=== PATIENT | male | born 1945 | race Caucasian/White ===

== ENCOUNTER 2017-07-22 12:39 | Outpatient (CLI) | payer MEDICARE | END 2017-07-22 12:40 | disposition home or self-care (01) | LOC: BICRAD 12:39 | PROVIDERS: ATTEND Internal Medicine Medical Oncology | DX: C90.00 Multiple myeloma not having achieved remission (principal) | CPT/HCPCS: 77075 ==

== ENCOUNTER 2018-02-24 09:35 | Observation (INO) | payer MEDICARE ==
[2018-02-24 10:20] LABS: #Eosinphils 0.2 thou/uL (0.0-0.7); #Lymphocytes 1.5 thou/uL (1.20-3.40); #Neutrophils 6.7 thou/uL (1.40-6.50); %Basophils 0.4 % (0.0-1.0); %Lymphocytes 15.4 % (21.0-51.0); %Monocytes 11.1 % (0.0-10.0); Hemoglobin 13.5 g/dL (14.0-18.0); Mean Corpuscular HGB CONC 32.9 g/dL (32.0-36.0); Mean Corpuscular Hemoglobin 30.7 pg (27.0-31.0); Mean Corpuscular Volume 93.3 fL (78.0-98.0); Mean Platelet Volume 7.7 fL (7.4-10.4); Platelet Count 271 thou/uL (130-400); RBC Distribution Width 13.2 % (11.5-14.5); White Blood Cell (WBC) Count 9.4 thou/uL (4.8-10.8)
[2018-02-24 10:26] LABS: INR-International Normal Ratio 2.9; PTT 42.4 SEC (22.9-36.1); Prothrombin Time 30.5 SEC (12.0-14.7)
[2018-02-24 10:40] LABS: ALT (SGPT) 16 U/L (8-55); AST (SGOT) 14 U/L (5-34); Albumin 3.7 g/dL (3.4-4.8); Alkaline Phosphatase 98 U/L (40-150); Anion Gap 18 mmol/L (10-20); BUN (Urea Nitrogen) 15 mg/dL (8.4-25.7); Bilirubin, Total 0.6 mg/dL (0.2-1.2); Calc. Creatinine Clearance 0 mL/min (70-130); Calcium 9.1 mg/dL (7.8-10.44); Carbon Dioxide 18 mmol/L (23-31); Chloride 106 mmol/L (98-107); Estimated GFR-MDRD 60; Globulin 4.1 g/dL (2.4-3.5); Glucose 119 mg/dL (83-110); Lipase 12 U/L (8-78); Potassium 4.1 mmol/L (3.5-5.1); Protein, Total 7.8 g/dL (5.8-8.1); Sodium 138 mmol/L (136-145)
--- NOTE | 2018-02-24 12:05 | CT ---
CT PULMONARY ANGIOGRAM WITH IV CONTRAST AND 3D POSTPROCESSING: Date: 02/24/18 HISTORY: 72-year-old male with dyspnea. Right lower extremity deep venous thrombosis diagnosed recently on . Multiple myeloma. FINDINGS: There is good contrast opacification of the pulmonary arterial vasculature with filling defects bilat erally consistent with pulmonary embolism. There is straightening of the intraventricular septum sugg estive of right ventricular strain. The thoracic aorta is well opacified without aneurysm or dissection. No pleural or pericardial effusi ons are seen. No pneumothoraces are identified. There are dependent changes in the lung bases. Multip le old rib fractures are present. There are lytic lesions in the skeleton consistent with multiple my eloma. A small hiatal hernia is noted. IMPRESSION: Bilateral pulmonary embolism with right ventricular strain. Discussed over the telephone with ER physician, Dr. Giuseppe Hager, at 1131 hours. CODE CR. POS: OFF
[2018-02-24] MEDS ORDERED: Enoxaparin Sodium 100 MG/ML SYRINGE ONE (12:12)
[2018-02-24] MEDS ORDERED: Acetaminophen 325 MG TAB PO PRN (12:54)
[2018-02-24] MEDS ORDERED: HYDROcodone/Acetaminophen 5/325 mg Tablet PO PRN (12:54)
[2018-02-24] MEDS ORDERED: Ondansetron PF 4 MG/2 ML Vial IVP PRN (12:54)
[2018-02-24] MEDS ORDERED: Zolpidem Tartrate 5 MG TAB PO PRN (12:54)
--- NOTE | 2018-02-24 13:03 | PDOC.EVN ---
Event Note - Event Note Event Note: DC SUMMARY [id number]
[2018-02-24 14:24] VITALS: BMI 30.2
--- NOTE | 2018-02-24 14:52 | HP ---
HISTORY OF PRESENT ILLNESS: This is a 72-year-old male, who presents to the hospital complaining of shortness of breath. He states that he is a multiple myeloma patient in remission. He was found to have a DVT approximately 6 days ago and was started on Xarelto 15 mg twice a day about 15 days ago. The patient states that he has been compliant with his medication. However, this morning, he started to have significant shortness of breath and worsening of his symptoms. He came to the ER, had an angiography performed, and was found to have bilateral PEs on CT angio. The patient otherwise states that he has no other medical history. He gets his medical care when he is here in [place]. 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 The patient currently is resting comfortably in bed and has no other complaints or issues. Denies any nausea, vomiting, diarrhea, constipation, chest pain, fevers, or chills. Does admit to some mild shortness of breath. ALLERGIES: NO KNOWN DRUG ALLERGIES. PAST MEDICAL HISTORY: Multiple myeloma in remission. MEDICATIONS: See MAR. SOCIAL HISTORY: Nondrinker and nonsmoker. FAMILY HISTORY: Unremarkable. REVIEW OF SYSTEMS: GENERAL: All systems reviewed. Pertinent positives in HPI, otherwise negative. VITAL SIGNS: Blood pressure 135/85, respiratory rate of 18, heart rate in the low 80s, temperature of 98. PHYSICAL EXAMINATION: GENERAL: The patient is lying in bed, in no acute discomfort. HEENT: Pupils equal, round, and reactive to light and accommodation. Extraocular muscles intact. Normocephalic, atraumatic. Oral cavity moist and pink. NECK: Supple, mobile, nontender. Thyroid appreciated. LUNGS: Clear to auscultation bilaterally. No respiratory distress. No increase in AP diameter. CARDIOVASCULAR: Regular rate and rhythm. S1 and S2. No murmurs, rubs, or gallops appreciated. No carotid bruit appreciated. ABDOMEN: Rotund. Positive bowel sounds. Soft, nontender. EXTREMITIES: Trace edema in bilateral lower extremities. 2+ peripheral pulses noted. NEUROLOGIC: Cranial nerves 2 through 12 intact. Alert and oriented x3. LABORATORY DATA: CBC within normal limits. BMP within normal limits. CTA of the chest was performed, positive for bilateral pulmonary embolism with biventricular strain. ASSESSMENT: 1. Pulmonary embolism. 2. History of deep venous thrombosis. 3. History of multiple myeloma with remission. PLAN: 1. At this point in time, we will start the patient on Lovenox 80 mg subcu q.12 hours. The patient was noted to have significant relief after he received the first dose in the ER. 2. We will provide the patient with supportive care. 3. Consult the pulmonary physician per request of his outpatient primary to see if any changes need to be made on his Xarelto. 4. At this point in time, the patient likely has not had enough sufficient time on Xarelto for his symptoms and his condition. There is a possibility that the existing clot that was has simply shut off and embolized and unlikely that it formed a new clot. For now, we will switch to Lovenox. The patient not able to get Eliquis per documentation as insurance apparently is denying paying for Eliquis, but is okay with taking Xarelto. We will await Pulmonary input for now and decide accordingly. The patient wishes to remain full code. Case and plan discussed with the patient at length. at bedside. They understand and agreed with this plan. Job ID: [id number]
[2018-02-24] MEDS ORDERED: Iopamidol 370 76% 50 ML VIAL FS ONE (16:52)
[2018-02-24] MEDS: Enoxaparin Sodium 80 MG/0.8 ML SYRINGE SC SCH (20:57)
[2018-02-25 06:03] LABS: #Basophils 0.1 thou/uL (0.0-0.2); #Eosinphils 0.3 thou/uL (0.0-0.7); #Lymphocytes 1.4 thou/uL (1.20-3.40); #Monocytes 0.8 thou/uL (0.11-0.59); #Neutrophils 4.2 thou/uL (1.40-6.50); %Basophils 0.8 % (0.0-1.0); %Lymphocytes 20.3 % (21.0-51.0); %Monocytes 12.5 % (0.0-10.0); %Neutrophils 62.3 % (42.0-75.0); Hemoglobin 11.2 g/dL (14.0-18.0); Mean Corpuscular HGB CONC 33.1 g/dL (32.0-36.0); Mean Corpuscular Hemoglobin 30.6 pg (27.0-31.0); Mean Corpuscular Volume 92.5 fL (78.0-98.0); Mean Platelet Volume 7.5 fL (7.4-10.4); Platelet Count 239 thou/uL (130-400); RBC Distribution Width 13.1 % (11.5-14.5); Red Blood Cell (RBC) Count 3.67 mill/uL (4.70-6.10); White Blood Cell (WBC) Count 6.7 thou/uL (4.8-10.8)
[2018-02-25 06:25] LABS: Anion Gap 12 mmol/L (10-20); BUN (Urea Nitrogen) 16 mg/dL (8.4-25.7); Calc. Creatinine Clearance 93 mL/min (70-130); Calcium 8.7 mg/dL (7.8-10.44); Carbon Dioxide 25 mmol/L (23-31); Chloride 106 mmol/L (98-107); Estimated GFR-MDRD 75; Glucose 111 mg/dL (83-110); Potassium 4.1 mmol/L (3.5-5.1); Sodium 139 mmol/L (136-145)
[2018-02-25] MEDS: Enoxaparin Sodium 80 MG/0.8 ML SYRINGE SC SCH (08:40)
[2018-02-25 15:53] VITALS: BP 121/71; TEMP 98.8
--- NOTE | 2018-02-26 15:15 | DIS ---
DATE OF ADMISSION: 02/24/2018 DATE OF DISCHARGE: 02/25/2018 ADMITTING DIAGNOSES: 1. Deep venous thrombosis. 2. Pulmonary embolism. 3. History of multiple myeloma in remission. DISCHARGE DIAGNOSES: 1. Deep venous thrombosis. 2. Pulmonary embolism. 3. Shortness of breath, resolved. 4. History of multiple myeloma in remission. HOSPITAL COURSE: This is a 72-year-old male, who was admitted to the hospital having recently been discovered DVT, who was started on Xarelto, was having significant shortness of breath, presented to the ER and was found to have pulmonary embolism. He was started on Lovenox, had significant improvement. Case was discussed with the patient at length. The patient was given Lovenox subcu q.12 hours for a month supply. The patient apparently lives in [place]. 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 The patient was advised to take Lovenox subcu 80 mg q.12 hours and follow up with his oncologist outpatient consider switching to Xarelto or Eliquis within 4 weeks or so depending on his clinical picture. The patient was only on Xarelto for about 6 to 7 days prior to having changes in symptomatology. The patient apparently at the time of discharge denied any nausea, vomiting, diarrhea, constipation, chest pain or increasing shortness of breath. Clinical condition was stable. DISPOSITION: Home. Follow up with PCP in 1 week and Oncology in 1 week. MEDICATIONS: See MAR. Discontinuation of Xarelto and prescription for Lovenox q.12 hours subcu given, 30 days supply, no refills. DIET: Low-fat, low-calorie, high-fiber diet. CONDITION: Stable. PROGNOSIS: Good. Case and plan discussed with the patient at length, he understood and agreed with this plan. Job ID: [id number]
== END 2018-02-25 18:10 | disposition home or self-care (01) ==
LOC: ERS 09:35 → 2SW 13:48
PROVIDERS: ADMIT Internal Medicine; ATTEND Internal Medicine
DX: I26.99 Other pulmonary embolism without acute cor pulmonale (principal); I82.409 Acute embolism and thrombosis of unspecified deep veins of unspecified lower extremity; C90.01 Multiple myeloma in remission; Z79.01 Long term (current) use of anticoagulants
CPT/HCPCS: 71275; 80048; 80053; 83690; 84484; 85025 ×2; 85610; 85730; 93005; 94760; 96372 ×3; 99285; G0378; 36415; J1650

== ENCOUNTER 2021-06-04 15:06 | Outpatient (CLI) | payer MEDICARE | END 2021-06-04 15:07 | disposition home or self-care (01) | LOC: BICRAD 15:06 | PROVIDERS: ATTEND Internal Medicine Medical Oncology | DX: C90.00 Multiple myeloma not having achieved remission (principal); M87.08 Idiopathic aseptic necrosis of bone, other site; C79.51 Secondary malignant neoplasm of bone; S22.060A Wedge compression fracture of T7-T8 vertebra, initial encounter for closed fracture; S22.070A Wedge compression fracture of T9-T10 vertebra, initial encounter for closed fracture; M89.9 Disorder of bone, unspecified; I70.0 Atherosclerosis of aorta; M47.816 Spondylosis without myelopathy or radiculopathy, lumbar region; M41.9 Scoliosis, unspecified; Z96.652 Presence of left artificial knee joint; Z96.642 Presence of left artificial hip joint; Z98.890 Other specified postprocedural states | CPT/HCPCS: 77075 ==

== ENCOUNTER 2023-08-02 09:52 | Outpatient (CLI) | payer MEDICARE ==
[2023-08-02] MEDS ORDERED: Iopamidol 370 76% 100 ML VIAL ONE (10:24)
== END 2023-08-02 09:53 | disposition home or self-care (01) ==
LOC: BICCT 09:52
PROVIDERS: ATTEND Internal Medicine
DX: C90.00 Multiple myeloma not having achieved remission (principal); C79.51 Secondary malignant neoplasm of bone; K63.9 Disease of intestine, unspecified; K86.2 Cyst of pancreas; I70.90 Unspecified atherosclerosis; I51.7 Cardiomegaly; J84.9 Interstitial pulmonary disease, unspecified; K42.9 Umbilical hernia without obstruction or gangrene; Z96.642 Presence of left artificial hip joint; M95.4 Acquired deformity of chest and rib
CPT/HCPCS: 71260; 74177; 82565

== ENCOUNTER 2023-09-09 10:57 | Emergency (ER) | payer MEDICARE ==
[2023-09-09 12:18] LABS: #Basophils Less than 0.03 10x3/uL (0.0-0.2); #Eosinphils Less than 0.03 10x3/uL (0.0-0.7); %Basophils 0.2 % (0.0-1.0); %Lymphocytes 5.9 % (21.0-51.0); %Monocytes 1.1 % (0.0-10.0); %Neutrophils 92.3 % (42.0-75.0); Hematocrit 36.1 % (42.0-52.0); Hemoglobin 12.3 g/dL (14.0-18.0); Mean Corpuscular HGB CONC 34.1 g/dL (32.0-36.0); Mean Corpuscular Hemoglobin 31.3 pg (27.0-31.0); Mean Corpuscular Volume 91.9 fL (78.0-98.0); Mean Platelet Volume 10.2 fL (7.4-10.4); Platelet Count 172 10x3/uL (130-400); RBC Distribution Width 12.9 % (11.5-14.5); Red Blood Cell (RBC) Count 3.93 mill/uL (4.70-6.10)
[2023-09-09 12:39] LABS: ALT (SGPT) 19 U/L (8-55); AST (SGOT) 21 U/L (5-34); Albumin 3.6 g/dL (3.4-4.8); Alkaline Phosphatase 108 U/L (40-110); Anion Gap 15 mmol/L (10-20); BUN (Urea Nitrogen) 18 mg/dL (8.4-25.7); Bilirubin, Total 1.2 mg/dL (0.2-1.2); Calc. Creatinine Clearance 0 mL/min (70-130); Calcium 9.5 mg/dL (7.8-10.44); Carbon Dioxide 19 mmol/L (23-31); Chloride 109 mmol/L (98-107); Estimated GFR 62; Globulin 3.5 g/dL (2.4-3.5); Glucose 154 mg/dL (83-110); Potassium 4.3 mmol/L (3.5-5.1); Protein, Total 7.1 g/dL (5.8-8.1); Sodium 139 mmol/L (136-145)
[2023-09-09 12:51] LABS: INR-International Normal Ratio 1.1; PTT 35.4 sec (22.9-36.1); Prothrombin Time 13.8 sec (12.0-14.7)
[2023-09-09] MEDS ORDERED: Morphine 4 MG/ML VIAL ONE (13:23)
[2023-09-09] MEDS ORDERED: Iopamidol-370 76% 500 ML MDV (1 ML CHARGE) ONE (15:21)
== END 2023-09-09 14:04 | disposition home or self-care (01) ==
LOC: ERS 10:57
DX: S30.1XXD Contusion of abdominal wall, subsequent encounter (principal); I82.401 Acute embolism and thrombosis of unspecified deep veins of right lower extremity; C79.51 Secondary malignant neoplasm of bone; M87.08 Idiopathic aseptic necrosis of bone, other site; C90.00 Multiple myeloma not having achieved remission; X58.XXXD Exposure to other specified factors, subsequent encounter
CPT/HCPCS: 74177; 80053 ×2; 82784 ×3; 83883 ×2; 84155; 84165; 85025; 85610; 85730; 99283; J2270; Q9967

== ENCOUNTER 2024-01-27 08:00 | Outpatient (CLI) | payer MEDICARE | END 2024-01-27 08:01 | disposition home or self-care (01) | LOC: PET 08:00 | PROVIDERS: ATTEND Internal Medicine | DX: C90.00 Multiple myeloma not having achieved remission (principal); C79.51 Secondary malignant neoplasm of bone; M87.08 Idiopathic aseptic necrosis of bone, other site | CPT/HCPCS: 78815; A9552; 36415; 80053; 83883; 84155; 84165 ==

== ENCOUNTER 2024-09-20 08:00 | Outpatient (CLI) | payer MEDICARE | END 2024-09-20 08:01 | disposition home or self-care (01) | LOC: PET 08:00 | PROVIDERS: ATTEND Internal Medicine | DX: R06.02 Shortness of breath (principal); C90.00 Multiple myeloma not having achieved remission; M87.08 Idiopathic aseptic necrosis of bone, other site; C79.51 Secondary malignant neoplasm of bone; M89.58 Osteolysis, other site | CPT/HCPCS: 78815; A9552 ==

== ENCOUNTER 2025-02-06 08:00 | Outpatient (CLI) | payer MEDICARE | END 2025-02-06 08:01 | disposition home or self-care (01) | LOC: PET 08:00 | PROVIDERS: ATTEND Internal Medicine | DX: C90.00 Multiple myeloma not having achieved remission (principal); C79.51 Secondary malignant neoplasm of bone; R06.02 Shortness of breath; M87.08 Idiopathic aseptic necrosis of bone, other site; E88.9 Metabolic disorder, unspecified | CPT/HCPCS: 78815; A9552 ==